=== PATIENT | male | born 2000 | race Caucasian/White ===

== ENCOUNTER 2022-05-25 12:42 | Emergency (ER) | payer OTHER ==
[2022-05-25 12:59] VITALS: BP 159/94; PULSE 92; RESP 18; TEMP 97.9; BMI 38.7
== END 2022-05-25 14:52 | disposition home or self-care (01) ==
LOC: JERFT 12:42
DX: S93.402A Sprain of unspecified ligament of left ankle, initial encounter (principal)
CPT/HCPCS: 73610-TC-LT-FY; 73630-TC-LT; 99284-25